=== PATIENT | male | born 1985 | race Caucasian/White ===

== ENCOUNTER 2019-06-11 13:39 | Emergency (ER) | payer SELFPAY ==
[~2019-06-11] VITALS: Ht 182.9 cm; Wt 135.2 kg
[2019-06-11 13:47] VITALS: BP 114/76
[2019-06-11 14:05] LABS: BASO % 0 % (0-3); EOS # 0.1 x10^3/uL (0.0-0.7); EOS % 1 % (0-3); HEMATOCRIT 44.4 % (39.0-53.0); HEMOGLOBIN 15.1 g/dL (13.0-17.5); LYMPH # 1.7 x10^3/uL (1.0-4.8); LYMPH % 23 % (24-48); MEAN CORPUSCULAR HEMOGLOBIN 30 pg (25-35); MEAN CORPUSCULAR HGB CONC 34 g/dL (31-37); MEAN CORPUSCULAR VOLUME 87 fL (79-100); MONO # 0.6 x10^3/uL (0.0-1.1); MONO % 8 % (0-9); NEUT # 4.9 x10^3uL (1.8-7.7); NEUT % 67 % (31-73); PLATELET COUNT 220 x10^3/uL (140-400); RED BLOOD COUNT 5.08 x10^6/uL (4.30-5.70); RED CELL DISTRIBUTION WIDTH 13.8 % (11.5-14.5); WHITE BLOOD COUNT 7.3 x10^3/uL (4.0-11.0)
[2019-06-11 14:09] LABS: CALCIUM 8.4 mg/dL (8.5-10.1); CREATININE 0.9 mg/dL (0.7-1.3); POTASSIUM 3.7 mmol/L (3.5-5.1)
--- NOTE | 2019-06-11 14:14 | PHYS DOC ---
Past History Past Medical History: CHF, High Cholesterol, Hypertension Past Surgical History: No Surgical History Smoking: Non-smoker Alcohol Use: Occasionally General Adult EDM: Chief Complaint: CHEST PAIN HPI: HPI: Patient is a 34-year-old male who presents to the emergency department for evaluation. He states that the past month he has had some orthopnea, and some shortness of breath with exertion. He has not had any chest pain, exertional, pleuritic, or otherwise. He states he has a history of hypertension and congestive heart failure, diagnosed in 2018, at the emergency department in [facility], and he followed up once with a expediter service order at [facility] around 2 years ago but has not seen a physician in 2 years. He states he has been taking blood pressure medications, including lisinopril 5 mg, carvedilol, and Lasix 20 mg, although he is ambiguous and vague about where he has been getting his medications from. He states he is concerned that his symptoms are related to a recurrent flare of congestive heart failure, and thus after a month, he states his girlfriend wanted him to come back and get seen. He denies any edema, cough, congestion, fevers, or chills. Other than as stated above, there are no alleviating or exacerbating factors to his symptoms. He states his main purpose for coming to the emergency department is he is almost out of his supply of medications. He does not take his medications regularly, including his Lasix. Review of Systems: Review of Systems: Constitutional: Denies fever or chills Eyes: Denies change in visual acuity HENT: Denies nasal congestion or sore throat Respiratory: Denies cough or shortness of breath at rest Cardiovascular: Denies chest pain or edema GI: Denies abdominal pain, nausea, vomiting, bloody stools or diarrhea : Denies dysuria Musculoskeletal: Denies back pain or joint pain Integument: Denies rash Neurologic: Denies headache, focal weakness or sensory changes Endocrine: Denies polyuria or polydipsia Lymphatic: Denies swollen glands Psychiatric: Denies depression or anxiety Heart Score: Risk Factors: Risk Factors: DM, Current or recent (<one month) smoker, HTN, HLP, family history of CAD, obesity. Risk Scores: Score 0 - 3: 2.5% MACE over next 6 weeks - Discharge Home Score 4 - 6: 20.3% MACE over next 6 weeks - Admit for Clinical Observation Score 7 - 10: 72.7% MACE over next 6 weeks - Early Invasive Strategies Allergies: Allergies: Allergies Coded Allergies Type Severity Reaction Last Updated Verified No Known Drug Allergies 06/11/19 No Physical Exam: PE: PHYSICAL EXAM: CONSTITUTIONAL: Well developed, well nourished HEAD: normocephalic, atraumatic EENT: PERRL, EOMI. Conjunctivae normal color, sclerae non-icteric; moist mucous membranes. NECK: Supple, non-tender; no meningismus. LUNGS: Lungs CTA, breathing even and unlabored. Normal air movement. HEART: Regular rate and rhythm, no murmur CHEST: No deformity; non-tender ABDOMEN: The abdomen is soft, and non-tender, no masses or bruits. EXTREM: Normal ROM; no deformity, no calf tenderness. Normal pulses palpable in all extremities. There is no pedal edema. SKIN: No rash; no diaphoresis NEURO: Alert; normal speech and cognition; CN's grossly intact; strength grossly intact without focal deficit. BACK: No CVA TTP. Current Patient Data: Labs: Laboratory Tests Test 06/11/19 13:47 White Blood Count 7.3 x10^3/uL Red Blood Count 5.08 x10^6/uL Hemoglobin 15.1 g/dL Hematocrit 44.4 % Mean Corpuscular Volume 87 fL Mean Corpuscular Hemoglobin 30 pg Mean Corpuscular Hemoglobin Concent 34 g/dL Red Cell Distribution Width 13.8 % Platelet Count 220 x10^3/uL Neutrophils (%) (Auto) 67 % Lymphocytes (%) (Auto) 23 % Monocytes (%) (Auto) 8 % Eosinophils (%) (Auto) 1 % Basophils (%) (Auto) 0 % Neutrophils # (Auto) 4.9 x10^3uL Lymphocytes # (Auto) 1.7 x10^3/uL Monocytes # (Auto) 0.6 x10^3/uL Eosinophils # (Auto) 0.1 x10^3/uL Basophils # (Auto) 0.0 x10^3/uL Sodium Level 142 mmol/L Potassium Level 3.7 mmol/L Chloride Level 103 mmol/L Carbon Dioxide Level 28 mmol/L Anion Gap 11 Blood Urea Nitrogen 15 mg/dL Creatinine 0.9 mg/dL Estimated GFR (Cockcroft-Gault) 96.0 BUN/Creatinine Ratio 17 Glucose Level 97 mg/dL Calcium Level 8.4 mg/dL Total Bilirubin 0.6 mg/dL Aspartate Amino Transf (AST/SGOT) 37 U/L Alanine Aminotransferase (ALT/SGPT) 62 U/L Alkaline Phosphatase 78 U/L Troponin I Quantitative 0.045 ng/mL OY-Qln-T-Type Natriuretic Peptide 2295 pg/mL Total Protein 7.2 g/dL Albumin 3.5 g/dL Albumin/Globulin Ratio 0.9 Laboratory Tests Test 06/11/19 13:47 White Blood Count 7.3 x10^3/uL (4.0-11.0) Red Blood Count 5.08 x10^6/uL (4.30-5.70) Hemoglobin 15.1 g/dL (13.0-17.5) Hematocrit 44.4 % (39.0-53.0) Mean Corpuscular Volume 87 fL (79-100) Mean Corpuscular Hemoglobin 30 pg (25-35) Mean Corpuscular Hemoglobin Concent 34 g/dL (31-37) Red Cell Distribution Width 13.8 % (11.5-14.5) Platelet Count 220 x10^3/uL (140-400) Neutrophils (%) (Auto) 67 % (31-73) Lymphocytes (%) (Auto) 23 % (24-48) L Monocytes (%) (Auto) 8 % (0-9) Eosinophils (%) (Auto) 1 % (0-3) Basophils (%) (Auto) 0 % (0-3) Neutrophils # (Auto) 4.9 x10^3uL (1.8-7.7) Lymphocytes # (Auto) 1.7 x10^3/uL (1.0-4.8) Monocytes # (Auto) 0.6 x10^3/uL (0.0-1.1) Eosinophils # (Auto) 0.1 x10^3/uL (0.0-0.7) Basophils # (Auto) 0.0 x10^3/uL (0.0-0.2) Sodium Level 142 mmol/L (136-145) Potassium Level 3.7 mmol/L (3.5-5.1) Chloride Level 103 mmol/L (98-107) Carbon Dioxide Level 28 mmol/L (21-32) Anion Gap 11 (6-14) Blood Urea Nitrogen 15 mg/dL (8-26) Creatinine 0.9 mg/dL (0.7-1.3) Estimated GFR (Cockcroft-Gault) 96.0 BUN/Creatinine Ratio 17 (6-20) Glucose Level 97 mg/dL (70-99) Calcium Level 8.4 mg/dL (8.5-10.1) L Total Bilirubin Pending Aspartate Amino Transferase (AST) Pending Alanine Aminotransferase (ALT) Pending Alkaline Phosphatase Pending MN-Nib-C-Type Natriuretic Peptide Pending Total Protein Pending Albumin Pending Albumin/Globulin Ratio Pending Vital Signs: Vital Signs Date Time Temp Pulse Resp B/P (MAP) Pulse Ox O2 Delivery O2 Flow Rate FiO2 06/11/19 13:47 98.5 67 18 114/76 (89) 98 06/11/19 13:46 Room Air EKG: EKG: [] Normal sinus rhythm at a rate of 103 bpm, left axis deviation, QRS widening suggestive of a left bundle branch block, with secondary repolarization abnormality but with no acute ischemic changes. Radiology/Procedures: Radiology/Procedures: PROCEDURE: CHEST PA & LATERAL CHEST PA LATERAL History: Shortness of breath. Comparison: None FINDINGS: The cardiomediastinal silhouette is enlarged. Low lung volumes contribute to this appearance, however. No evidence of pneumothorax. No evidence of pleural effusion. Mildly prominent interstitium, likely due to the low lung volumes. No consolidating airspace infiltrate. Bones appear grossly intact. IMPRESSION: Heart size appears enlarged. Prominent interstitial markings may just be due to low lung volumes, versus mild interstitial infiltrate or edema. No consolidating airspace disease.[] Course & Med Decision Making: Course & Med Decision Making Pertinent Labs and Imaging studies reviewed. (See chart for details) [] Patient remains stable. I discussed test results, the need for close follow- up with cardiology, medication compliance, and return precautions. Gagandeep Disclaimer: Gagandeep Disclaimer: This electronic medical record was generated, in whole or in part, using a voice recognition dictation system. Departure Departure: Impression: Primary Impression: Congestive heart failure Disposition: 01 HOME, SELF-CARE Condition: STABLE Referrals: ELIANA TORRES MD Patient Instructions: Heart Failure Scripts Lisinopril (LISINOPRIL) 5 Mg Tablet 1 TAB PO DAILY for -, #30 TAB 0 Refills Prov: CARO TY MD 06/11/19 Carvedilol (Carvedilol) 6.25 Mg Tablet 6.25 MG PO BID for -\, #60 TAB Prov: CARO TY MD 06/11/19 Furosemide (LASIX) 20 Mg Tablet 1 TAB PO DAILY for CHF for 30 Days, #30 TAB 0 Refills Prov: CARO TY MD 06/11/19 CARO TY MD Jun 11, 2019 14:14
--- NOTE | 2019-06-11 14:19 | RAD ---
CHEST PA LATERAL History: Shortness of breath. Comparison: None FINDINGS: The cardiomediastinal silhouette is enlarged. Low lung volumes contribute to this appearance, however. No evidence of pneumothorax. No evidence of pleural effusion. Mildly prominent interstitium, likely due to the low lung volumes. No consolidating airspace infiltrate. Bones appear grossly intact. IMPRESSION: Heart size appears enlarged. Prominent interstitial markings may just be due to low lung volumes, versus mild interstitial infiltrate or edema. No consolidating airspace disease. Electronically signed by: Joe Delong MD (06/11/2019 2:16 PM) [id number]
[2019-06-11 14:22] LABS: ALBUMIN 3.5 g/dL (3.4-5.0); ALBUMIN/GLOBULIN RATIO 0.9 (1.0-1.7); TOTAL BILIRUBIN 0.6 mg/dL (0.2-1.0); TOTAL PROTEIN 7.2 g/dL (6.4-8.2)
[2019-06-11] MEDS ORDERED: LISI-338 PO (14:33)
[2019-06-11] MEDS ORDERED: FURO-69 PO (14:33)
[2019-06-11] MEDS ORDERED: FUROSEMIDE 40 MG/4 ML VIAL ONE (14:33)
[2019-06-11] MEDS ORDERED: CARV6.253 PO (14:33)
[2019-06-11] MEDS ORDERED: FUROSEMIDE 40 MG/4 ML VIAL IVP ONE (14:45)
--- NOTE | 2019-06-11 16:44 | EKG ---
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
== END 2019-06-11 14:35 | disposition home or self-care (01) ==
LOC: ER 13:39
DX: I11.0 Hypertensive heart disease with heart failure (principal); I50.9 Heart failure, unspecified; E78.00 Pure hypercholesterolemia, unspecified
CPT/HCPCS: 36415; 71046; 80053; 83880; 84484; 85025; 93005; 96374; 99285; J1940